=== PATIENT | female | born 2005 | race Caucasian/White ===

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

== ENCOUNTER 2024-10-16 22:35 | Emergency (ER) | payer OTHER ==
[2024-10-16 22:44] VITALS: BP 116/77; PULSE 103; RESP 18; TEMP 98.6; BMI 30.4
[2024-10-16] MEDS ORDERED: ACETAMINOPHEN INJECTION 100 ML ONE (23:32)
[2024-10-16] MEDS ORDERED: ONDANSETRON 4 MG/2 ML VIAL ONE (23:32)
[2024-10-16 23:33] LABS: ABSOLUTE IMMATURE GRANULOCYTES 0.04 x10^3/uL (0.0-0.031); BASOPHILS # 0.03 x10^3/uL (0.01-0.08); EOSINOPHIL % 0.4 % (0.7-5.8); EOSINOPHILS # 0.07 x10^3/uL (0.04-0.36); MCHC 32.7 g/dl (32.2-35.5); MEAN CELL VOLUME 85.0 fl (79.4-94.8); MEAN PLT VOLUME 9.5 fl (9.4-12.3); MONOCYTE # 0.78 x10^3/uL (0.24-0.86); MONOCYTE % 5.0 % (4.7-12.5); RDW 12.5 % (12.0-16.2)
[2024-10-16] MEDS: ACETAMINOPHEN 1000 MG/100 ML BAG IVPB ONE (23:40)
[2024-10-16 23:41] LABS: EPI CELLS >36 /uL (0-25.1); HYALINE CASTS 5 /uL (0-3.1); URINE APPEARANCE CLOUDY; URINE BACTERIA >9,000 /uL (0-1359); URINE BILIRUBIN NEGATIVE (NEGATIVE); URINE COLOR DK YELLOW; URINE GLUCOSE (UA) NEGATIVE (NEGATIVE); URINE KETONE 3+ (NEGATIVE); URINE LEUK ESTERASE NEGATIVE (NEGATIVE); URINE NITRITE NEGATIVE (NEGATIVE); URINE PROTEIN 1+ (NEGATIVE); URINE UROBILINOGEN 1.0 mg/dL (0.2-1.0)
[2024-10-16] MEDS: SODIUM CHLORIDE 1,000 ML IV STA (23:45)
[2024-10-16] MEDS: ONDANSETRON 4 MG/2 ML VIAL IVPUSH ONE (23:46)
[2024-10-16 23:51] LABS: URINE RBC 56.9 /uL (0-23.9); URINE WBC 181.6 /uL (0-25.8)
[2024-10-17 00:06] LABS: CO2 26.0 mmol/L (21-32); GLUCOSE,RANDOM 95.0 mg/dL (74-106)
[2024-10-17 00:09] LABS: CREATININE 0.8 mg/dL (0.55-1.3); SGOT/AST 74.0 U/L (15-37); SGPT/ALT 73.0 U/L (13-61)
[2024-10-17 00:11] LABS: TOT PROT 9.1 g/dl (6.4-8.2)
[2024-10-17 00:12] LABS: ALK PHOS 100.0 U/L (45-117)
[2024-10-17 01:22] LABS: HCV DIAGNOSTIC IN-HOUSE W/RFLX NON-REACTIVE (NONREACTIVE); HIV INTERPRETATION NEGATIVE (NEGATIVE)
== END 2024-10-17 00:28 | disposition home or self-care (01) ==
LOC: JER 22:35
PROC: 3E033NZ Introduction of Analgesics, Hypnotics, Sedatives into Peripheral Vein, Percutaneous Approach (ICD-10-PCS; principal; 2024-10-16)
PROC: 3E033GC Introduction of Other Therapeutic Substance into Peripheral Vein, Percutaneous Approach (ICD-10-PCS; 2024-10-16)
PROC: 3E0337Z Introduction of Electrolytic and Water Balance Substance into Peripheral Vein, Percutaneous Approach (ICD-10-PCS; 2024-10-16)
DX: N30.01 Acute cystitis with hematuria (principal); R10.84 Generalized abdominal pain; R11.2 Nausea with vomiting, unspecified
CPT/HCPCS: 36415; 80053; 81003; 83690; 84703; 85025; 86803; 87086; 87389; 99284-25